=== PATIENT | female | born 1995 | race Caucasian/White ===

== ENCOUNTER 2016-10-09 03:51 | Emergency (ER) | payer OTHER, SELFPAY ==
[~2016-10-09] VITALS: Ht 157.5 cm; Wt 54.4 kg
[2016-10-09] MEDS ORDERED: ACETAMINOPHEN TAB 650MG DOSE (2X325MG) PO ONE (05:15)
--- NOTE | 2016-10-09 05:50 | REPUSA ---
CLINICAL HISTORY: Head trauma. TECHNIQUE: Multiple axial brain CT scan sections were obtained from base to vertex without contrast a dministration. COMMENTS: There is no evidence of skull fracture. Right frontal scalp hematoma is present. The study shows normal configuration of sella turcica. There are no intra or extra-axial collections. There is no mass effect or midline shift. There is no evidence of hematoma formation. No hydrocephal us is present. No abnormal calcifications are noted. No significant abnormalities are seen either in the posterior fossa or supratentorial compartment. The sinuses and mastoid air cells are patent. IMPRESSION: Right frontal scalp hematoma. No evidence of acute intracranial pathology. No intracranial hemorrhage or skull fracture. Thank you for your kind referral of this patient.
[2016-10-09 06:07] VITALS: BP 121/76
== END 2016-10-09 06:08 | disposition home or self-care (01) ==
LOC: EDBD 03:51 → M ED 05:46
DX: S00.91XA Abrasion of unspecified part of head, initial encounter (principal); Y04.8XXA Assault by other bodily force, initial encounter; Y92.009 Unspecified place in unspecified non-institutional (private) residence as the place of occurrence of the external cause; Y93.89 Activity, other specified; Y99.8 Other external cause status